=== PATIENT | male | born 1960 | race Caucasian/White ===

== ENCOUNTER 2022-06-16 09:11 | Emergency (ER) | payer OTHER, SELFPAY ==
[2022-06-16 09:12] VITALS: BP 194/100; PULSE 74; RESP 16; TEMP 36.1; O2SAT 97; BMI 30.3
--- NOTE | 2022-06-16 09:36 | ED.VIS.LOWEX ---
HPI History of Present Illness HPI Narrative: Atraumatic right knee pain for 2 months. Chief Complaint: Lower Extremity Injury Informant: patient Occured/Mechanism Mechanism/Context: No injury and No blunt trauma Onset/Context/Timing Onset: Month(s) Context: Gradual Onset Timing: Continuous Quality of Pain: Dull and Aching Current Severity: Mild Maximum Severity: Moderate Narrative Narrative: 61-year-old male past medical history of CAD with prior CABG and back surgeries. He denies any history of knee problems or knee surgeries. He said 2 to 3 months ago he started having pain in his right knee that is been continuous. He felt a pop yesterday and the pain has been worse. Denies any redness. No fever. No swelling. Denies any type of trauma. 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 Prior similar symptoms: No Recent Illness/Hospitalization: No PFSH PFSH Medical History no medical history Home Medications amitriptyline 25 mg tablet 25 mg PO QHS 12/01/15 [History Last Taken Unknown] aspirin 81 mg tablet,delayed release 81 mg PO DAILY@0800 12/01/15 [History Last Taken Unknown] bupropion HCl 150 mg tablet,12 hr sustained-release 150 mg PO QHS 12/01/15 [History Last Taken 12/02/15 06:30] bupropion HCl 300 mg 24 hr tablet, extended release 300 mg PO DAILY 12/01/15 [History Last Taken Unknown] diclofenac sodium 75 mg tablet,delayed release 75 mg PO DAILY 12/01/15 [History Last Taken Unknown] gabapentin 300 mg capsule 300 mg PO TIDCM 12/01/15 [History Last Taken Unknown] metoprolol tartrate 50 mg tablet 50 mg PO BID 12/01/15 [History Last Taken 12/02/15 06:30] simvastatin 40 mg tablet 40 mg PO QHS 12/01/15 [History Last Taken Unknown] zolpidem 10 mg tablet (Ambien) 10 mg PO QHS PRN Insomnia 12/01/15 [History Last Taken Unknown] oxycodone-acetaminophen 5 mg-325 mg tablet 1 - 2 tab PO Q4H PRN PRN Pain ##30 12/02/15 [Rx Last Taken Unknown] Ibuprofen [Motrin] 800 mg PO TID ##20 03/21/16 [Rx Last Taken Unknown] diazepam 5 mg tablet 5 mg PO Q8 PRN Muscle Spasm ##20 12/15/15 [Rx Last Taken Unknown] oxycodone-acetaminophen 5 mg-325 mg tablet 1 - 2 tab PO Q4H PRN PRN Pain ##30 12/15/15 [Rx Last Taken Unknown] prednisone 20 mg tablet 60 mg PO DAILY ##15 12/15/15 [Rx Last Taken Unknown] Allergy/AdvReac Type Severity Reaction Status Date / Time No Known Allergies Allergy Verified 12/15/15 12:35 Social History Smoking Status: Current every day smoker tobacco type: cigarettes ROS ROS ED ROS Narrative Denies recent illness. Review of Systems ROS Unobtainable: Denies due to encephalopathy Constitutional Constitutional ED: Denies chills or fever(s) Eyes Eyes: Denies blurry vision ENT ENT ED: Denies ear pain Respiratory/Chest Respiratory/Chest: Denies cough or dyspnea Gastrointestinal Gastrointestinal: Denies abdominal pain Genitourinary Genitourinary ED: Denies dysuria Musculoskeletal Musculoskeletal: Denies arthralgias Integumentary Denies abscess Neurologic Neurologic: Denies headache(s) Psychiatric Psychiatric: Denies anxiety or depression Hematologic/Lymphatic Hematologic/Lymphatic: Denies easy bleeding Allergic/Immunologic Allergic/Immunologic ED: Denies mouth swelling EXAM Physical Exam Narrative Exam Narrative: 61-year-old male vital signs stable afebrile. H EENT exam unremarkable. Lungs clear. Heart regular rhythm no murmur. Abdomen soft nontender. Moving all 4 extremities. Neurovascular intact. Calves are nontender without edema or cords. He is able to flex and extend both knees. There is no effusion. No redness. ACL, PCL, MCL LCL are intact. Right foot is neurovascular intact. Otherwise exam unremarkable. Const Vital Signs: 06/16/22 09:12 Temperature 97.0 F L Temperature Source Temporal Pulse Rate 74 Respiratory Rate 16 Blood Pressure 194/100 H Blood Pressure Mean 131 Pulse Ox 97 Oxygen Delivery Method Room Air Positive well nourished and well developed; Negative for cachectic, contractures or unkempt General Appearance ED: well developed; Negative for unkempt, cachectic or contractures Nutritional Appearance: Negative for cachectic HEENT Reports moist mucous membranes normocephalic and atraumatic; Negative for trauma or tenderness Eyes PERRL General Eye ED: Negative for other Neck full ROM and supple Thyroid: Negative for tender Lymph Lymphatic: Negative for other Chest Wall inspection of chest normal and palpation of chest normal Chest: Negative for other Resp normal respiratory effort, no retractions and clear to auscultation bilaterally Effort and Inspection: Negative for pain with movement Auscultation: Negative for rales or rhonchi Percussion: Negative for other Cardio regular rate, regular rhythm, S1 normal heart sound, S2 normal heart sound and no murmurs Rate: Negative for bradycardia Rhythm: Negative for abnormal rhythm Bruits: Negative for other GI non-tender, non-distended and no masses Inspection: Negative for abdominal distention Auscultation: normoactive bowel sounds Palpation: soft; Negative for tender or guarding Back/Spine no CVA tenderness Extremity normal to inspection and full ROM General Extremety ED: Negative for cyanosis, edema or weight-bearing difficulty General Extremity: Negative for cyanosis, edema or weight-bearing difficulty Neuro oriented x3 and moves all extremities Sensorium / Orientation: alert, oriented to person, oriented to place and oriented to time Motor Exam: strength 5/5 throughout Psych mental status grossly normal Appearance: Negative for unkempt Speech: No other Mood & Affect: Negative for anxious Skin no wounds Lesions: no lesions Rashes: no rashes Trauma: Negative for abrasion MDM MDM MDM Narrative Medical decision making narrative: 61-year-old male with 2 to 3-month history of right knee pain is atraumatic. There is no signs of infection. No effusion. This may be secondary to arthritis. X-ray will be obtained. Exam and history consistent with arthritis. Patient I discussed treatment options. We did a knee joint injection of the right knee with lidocaine and Kenalog. He started having immediate relief. He was warned if any signs of infection are seen return. He will be referred to orthopedics on-call. Radiography Diagnostic Testing: Clinical Impression(s) from Imaging Studies Knee X-Ray 06/16/22 09:40 IMPRESSION: Degenerative arthrosis. Electronically Signed: Preston Chaidez MD at 9:54 EDT , Right knee x-ray 3 views consistent with arthritis. No fracture or dislocation. Interpreted both by myself and the radiologist. Procedures Other Procedures Procedure(s): Right knee joint injection: Discussed with patient treatment options. He was fine with a knee joint injection. I cleaned his knee thoroughly with alcohol swabs. Did a medial approach and injected 10 cc of Kenalog and lidocaine mixture. Patient tolerated procedure well and started having relief within a few minutes. He was instructed on any signs of infection or return. Otherwise we will follow-up with orthopedics. Discharge Plan Triage Chief Complaint: Lower Extremity Injury ED Provider: Hernan Mobley Dx/Rx/DC Orders Clinical Impression: Arthritis, Acute knee pain Instructions: Osteoarthritis Prescriptions: No Action bupropion HCl 150 MG Tablet.Sa 150 mg PO QHS aspirin 81 MG tablet 81 mg PO DAILY@0800 simvastatin 40 MG tablet 40 mg PO QHS amitriptyline 25 MG tablet 25 mg PO QHS metoprolol tartrate 50 MG tablet 50 mg PO BID gabapentin 300 MG capsule 300 mg PO TIDCM diclofenac sodium 75 MG tablet 75 mg PO DAILY zolpidem [Ambien] 10 MG tablet 10 mg PO QHS PRN (Reason: Insomnia) bupropion HCl 300 MG Tablet.Xl 300 mg PO DAILY oxycodone-acetaminophen 1 TABLET tablet 1 - 2 tab PO Q4H PRN PRN (Reason: Pain) Qty: 30 0RF prednisone 20 MG tablet 60 mg PO DAILY Qty: 15 0RF oxycodone-acetaminophen 1 TABLET tablet 1 - 2 tab PO Q4H PRN PRN (Reason: Pain) Qty: 30 0RF diazepam 5 MG tablet 5 mg PO Q8 PRN (Reason: Muscle Spasm) Qty: 20 0RF Ibuprofen [Motrin] 800 MG tablet 800 mg PO TID Qty: 20 0RF Primary Care Provider: Care Physician,No Primary Referrals: Santiago Reese DO [Med Staff - Active Staff] - As Needed Care Physician,No Primary [Primary Care Provider] - Activity Restrictions/Additional Instructions: Your history, exam and x-ray are consistent with arthritis in your knee causing the pain. The injection of the steroid Kenalog and lidocaine and numbing medication hopefully will give you significant relief. This should knock down the inflammation help with the pain. Ice to your knee. Motrin, Advil or ibuprofen for inflammation. Tylenol also for pain. Follow-up with the orthopedic physician as needed. Disposition Disposition: Home, Self Care
--- NOTE | 2022-06-16 09:40 | RAD_ITS ---
STUDY: X-RAY - RIGHT KNEE REASON FOR EXAM: Male, 61 years old. atraumatic knee pain TECHNIQUE: 3 view(s) of the knee. COMPARISON: None. FINDINGS: Normal visualized distal femur. Normal visualized proximal tibia and fibula. Normal proximal tibiofibular articulation. There is mild degenerative arthrosis of the medial femorotibial compartment. Normal lateral femorotibial compartment. Normal patellofemoral articulation. There is a soft tissue prominence in the suprapatellar region suggesting a small volume joint effusion. The soft tissue structures are unremarkable. RAD/Knee 3 Views IMPRESSION: Degenerative arthrosis. Electronically Signed: Preston Chaidez MD at 9:54 EDT ,
[2022-06-16] MEDS: Triamcinolone Acetonide 40 MG/ML Vial INTRAARTIC (10:35)
[2022-06-16] MEDS: Lidocaine 1% (20 ml mdv) 20 ML Vial INFILT (10:35)
== END 2022-06-16 10:40 | disposition home or self-care (01) ==
PROVIDERS: Emergency Provider Emergency Medicine; Visit Provider Emergency Medicine
DX: M17.11 Unilateral primary osteoarthritis, right knee (principal); M25.562 Pain in left knee; I25.10 Atherosclerotic heart disease of native coronary artery without angina pectoris; F17.210 Nicotine dependence, cigarettes, uncomplicated; Z95.1 Presence of aortocoronary bypass graft; Z79.82 Long term (current) use of aspirin; Z79.52 Long term (current) use of systemic steroids
CPT/HCPCS: 20610; 73562; 99282